=== PATIENT | male | born 1990 | race American Indian/Alaskan Native ===

== ENCOUNTER 2025-02-01 06:02 | Emergency (ER) | payer OTHER ==
[~2025-02-01] VITALS: Ht 167.6 cm; Wt 118.5 kg
--- NOTE | 2025-02-01 06:38 | ED.PDOC ---
HPI Allergic reaction HPI Comments This is a 34 year old male presenting to the ED with chief complaint of allergic reaction. Patient reports that he has been experiencing bilateral hand swelling with associated rash and itchiness to his back since 9pm yesterday. Patient relays that he is unsure what he got a reaction from, but knows it was not from food he had eaten. Patient states he has an itchy throat, but no swelling or SOB noted. Patient denies any tingling, chest pain, dizziness, cough, mouth swelling, or fever. Chief Complaint: Allergic Reaction Time Seen by MD: 06:36 Reviewed Notes: Nurses Notes, Medications, Allergies Allergies: Coded Allergies: Hammett (Verified Allergy, Unknown, 02/01/25) Information Source: Patient Mode of Arrival: Ambulatory Severity: Moderate Rash: Moderate SOB: None Difficulty swallowing: None Pruritus: Moderate Timing: Hours Duration: Since onset Prehospital treatment: None Location: Arm, Back, Hand Exposed to: Unknown Developed: Pruritus, Rash History of: None Modyifying Factors: None Past Medical History PAST MEDICAL HISTORY: Denies Surgical History: Denies all surgeries Family History Family History: Reviewed,noncontributory to illness Social History Smoker: Cigarettes Alcohol: Denies ETOH Use Drugs: Denies Drug Use Lives In: Home Constitutional: denies: chills, diaphoresis, fatigue, fever, malaise, sweats, weakness, others EENTM: denies: blurred vision, double vision, ear bleeding, ear discharge, ear drainage, ear pain, ear ringing, eye pain, eye redness, hearing loss, mouth pain, mouth swelling, nasal discharge, nose bleeding, nose congestion, nose pain, photophobia, tearing, throat pain, throat swelling, voice changes, others Respiratory: denies: cough, hemoptysis, orthopnea, SOB at rest, shortness of breath, SOB with excertion, stridor, wheezing, others Cardiovascular: denies: chest pain, dizzy spells, diaphoresis, Dyspnea on exertion, edema, irregular heart beat, left arm pain, lightheadedness, palpitations, PND, syncope, others Gastrointestinal: denies: abdomen distended, abdominal pain, blood streaked bowels, constipated, diarrhea, dysphagia, difficulty swallowing, hematemesis, melena, nausea, poor appetite, poor fluid intake, rectal bleeding, rectal pain, vomiting, others Genitourinary: denies: burning, dysuria, flank pain, frequency, hematuria, incontinence, penile discharge, penile sore, pain, testicle pain, testicle swelling, urgency, others Neurological: denies: dizziness, fainting, headache, left sided numbness, left sided weakness, numbness, paresthesia, pre-existing deficit, right sided numbness, right sided weakness, seizure, speech problems, tingling, tremors, weakness, others Musculoskeletal: denies: back pain, gout, joint pain, joint swelling, muscle pain, muscle stiffness, neck pain, others Integumetry: reports: others (Bilateral hand swelling); denies: bruises, change in color, change in hair/nails, dryness, laceration, lesions, lumps, rash, wounds Allergic/Immunocompromised: reports: Hives, Itching; denies: Difficulty Healing, Frequent Infections, others Hematologic/Lymphatic: denies: anemia, blood clots, easy bleeding, easy bruising, swollen glands, others Endocrine: denies: excessive hunger, excessive sweating, excessive thirst, excessive urination, flushing, intolerance to cold, intolerance to heat, unexplained weight gain, unexplained weight loss, others Psychiatric: denies: anxiety, bipolar disorder, depression, hopeless, panic disorder, schizophrenia, sleepless, suicidal, others All Other Systems: Reviewed and Negative Physical Exam General Appearance: Moderate Distress, Normal HEENT: Normal ENT Inspection, Pharynx Normal, TMs Normal Neck: Full Range of Motion, Non-Tender, Normal, Normal Inspection Respiratory: Chest Non-Tender, Lungs Clear, No Accessory Muscle Use, No Respiratory Distress, Normal Breath Sounds Cardiovascular: No Edema, No JVD, No Murmur, No Gallop, Normal Peripheral Pulses, Regular Rate/Rhythm Breast Exam: Deferred Gastrointestinal: No Organomegaly, Non Tender, No Pulsatile Mass, Normal Bowel Sounds, Soft Genitalia: Deferred Pelvic: Deferred Rectal: Deferred Extremities: No calf tenderness, Normal capillary refill, Normal inspection, Normal range of motion, Non-tender, No pedal edema Musculoskeletal : Apperance: Normal Neurologic: Alert, wellness manager II-XII nml as Tested, No Motor Deficits, Normal Affect, Normal Mood, No Sensory Deficits Cerebellar Function: Normal Reflexes: Normal Skin: Dry, Normal Color, Rash (Erythematous rash in the back along with swelling of bilateral hands), Warm Peripheral Pulses: 3+ Radial (R), 3+ Radial (L) Lymphatic: No Adenopathy Was a procedure done? Was a procedure done?: No Differential diagnosis (all) Differential Diagnosis: Anaphylaxis, Angioedema, Drug Reaction, Urticaria X-Ray, Labs, Meds, VS Vital Signs Date Time Temp Pulse Resp B/P (MAP) Pulse Ox O2 Delivery O2 Flow Rate FiO2 02/01/25 06:52 98.6 108 20 102/66 (78) 98 98.6 02/01/25 06:04 98.1 109 18 121/79 97 98.1 Current Medications Medications (Trade) Dose Ordered Sig/Juarez Route Start Time Stop Time Status Last Admin Methylprednisolone Sodium Succinate (Solu Medrol) 125 mg ONCE ONCE IM 02/01/25 06:45 02/01/25 06:46 DC 02/01/25 06:57 Epinephrine HCl 0.3 mg ONCE ONCE SC 02/01/25 06:45 02/01/25 06:46 DC 02/01/25 07:00 Diphenhydramine HCl (Benadryl Injection) 25 mg ONCE ONCE IM 02/01/25 06:45 02/01/25 06:46 DC 02/01/25 06:56 Patient alert. Came in because of allergic reaction that is started last night. Vitals stable. Answering questions. No sign of distress. No leg swelling. No shortness a breath. No chest pain. Was given steroid. Was given epinephrine. Was given Benadryl. Started feeling better. Saturation pristine on room air. Heart rate within normal limits. Respiratory rate within normal limits. No acute process. Was given prescription of prednisone. Was told to follow up with his primary care physician. Was told to come back if there is any problem. Time of 1ST Reevaluation: 07:35 Reevaluation 1ST: Improved Patient Education/Counseling: Diagnosis, Treatment Family Education/Counseling: Diagnosis, Treatment SEPSIS Sepsis Screen Date sepsis recognized/suspect: Feb 01, 2025 Time Sepsis recognized/suspect: 608 Recent Procedure: No On Antibiotic Therapy: No Respiratory Rate >20: No Heart Rate >90: Yes Temp<36 C (96.8 F) or >38.3 C: No SBP <90 or MAP <65 mmHG: No New Acute Mental Status Change: No Is the patient on CPAP, BIPAP,: No Vital Signs Date Time Temp Pulse Resp B/P (MAP) Pulse Ox O2 Delivery O2 Flow Rate FiO2 02/01/25 06:52 98.6 108 20 102/66 (78) 98 98.6 02/01/25 06:04 98.1 109 18 121/79 97 98.1 Medications Medications Dose Ordered Sig/Juarez Route Start Time Stop Time Status Last Admin Dose Admin Diphenhydramine HCl 25 mg ONCE ONCE IM 02/01/25 06:45 02/01/25 06:46 DC 02/01/25 06:56 Epinephrine HCl 0.3 mg ONCE ONCE SC 02/01/25 06:45 02/01/25 06:46 DC 02/01/25 07:00 Methylprednisolone Sodium Succinate 125 mg ONCE ONCE IM 02/01/25 06:45 02/01/25 06:46 DC 02/01/25 06:57 Departure 1 Departure Time of Disposition: 07:08 Impression: Primary Impression: Allergic reaction Qualified Codes: T78.40XA - Allergy, unspecified, initial encounter Disposition: HOME / SELF CARE / HOMELESS Condition: Good e-Prescriptions Prednisone (Prednisone) 20 Mg Tab 20 MG PO DAILY for 5 Days, #5 MG Prov: CECI LAROSE MD 02/01/25 Discharged With: Self Critical Care Note Critical Care Time?: No Stability Stability form required: No Heart Score Heart Score: Heart Score Response (Comments) Value History N/A 0 EKG N/A 0 Age N/A 0 Risk Factors N/A 0 Troponin N/A 0 Total 0 I personally scribed for CECI LAROSE MD ([email or web address]) on 02/01/25 at 06:38. Electronically submitted by Niko Gil ([email or web address]). CECI LAROSE MD Feb 01, 2025 06:38
[2025-02-01 06:52] VITALS: BP 102/66; PULSE 108; RESP 20; TEMP 98.6; O2SAT 98
[2025-02-01] MEDS: diphenhydrAMINE HCL 50 MG/1 ML VL IM ONE (06:56)
[2025-02-01] MEDS: methylPREDNISolone SOD SUCC 125 MG/2 ML VL IM ONE (06:57)
[2025-02-01] MEDS ORDERED: PRED20TA2 PO (07:09)
== END 2025-02-01 09:24 | disposition home or self-care (01) ==
LOC: ER 06:02
DX: L53.9 Erythematous condition, unspecified (principal); T78.40XA Allergy, unspecified, initial encounter; F17.210 Nicotine dependence, cigarettes, uncomplicated; X58.XXXA Exposure to other specified factors, initial encounter
CPT/HCPCS: 96372; 99284; J0169; J1200; J2919